=== PATIENT | female | born 1940 | race Caucasian/White ===

== ENCOUNTER 2021-08-01 12:26 | Outpatient (CLI) | payer MEDICARE, OTHER, SELFPAY ==
--- NOTE | 2021-08-01 16:24 | WPDSIXMINUTE ---
Six Minute Walk Procedure Procedure Performed Pulmonary Stress Test (6 min walk) Six Minute Walk This is a 6 minute walk test. The test was performed and interpreted in accordance with the 2014 ERS/ATS task force guidelines. Of note the patient perform this test using 6 L per minute nasal cannula oxygen. Findings: The patient's resting oxygen saturation on 6 L nasal cannula measured by pulse oximetry was 100% and her heart rate was 109 bpm. Patient ambulated for 183 meters and oxygen saturation remained 90 to 98%. Heart rate at the end of the study was 132 bpm. The patient did not qualify for supplemental oxygen at rest or with ambulation. There are no prior studies for comparison.
--- NOTE | 2021-08-01 16:26 | WPDPFTINT ---
PFT Procedure Performed PFT Procedure Performed Plethysmography (Lung Vol) Diffusing Cap (DLCO) Flow Vol Loop Spirometry w/o Bronchodil PFT Interpretation This is a pulmonary function test with spirometry, plethysmography and diffusing capacity. The test was performed and results interpreted in accordance with the 2019 and 2005 ATS/ERS Task Force guidelines respectively using the Global Lung Function Initiative-2012 reference equations. Patient demonstrated good effort and cooperation. Reproducibility criteria were met. The quality of the spirometry maneuver was Grade A. Findings: Spirometry: The contour of the inspiratory and expiratory flow tracing are normal. The FVC is 1.33 L, 55% predicted. The FEV1 is 0.99 L, 54% predicted. The FEV1: FVC ratio 74%. Plethysmography: The total lung capacity is 3.16 L, 67% predicted. Functional residual capacity is 1.92 L, 71% predicted. The residual volume is 1.83 L, 82% predicted. Diffusion capacity: The absolute diffusion capacity is 5.5, and 29% predicted. The diffusing capacity corrected for alveolar volume is 2.56, 60% predicted. Impression: There is a moderately severe restrictive ventilatory abnormality. The spirometry is normal without evidence of an obstructive abnormality. The absolute diffusing capacity is severely decreased and remains moderately decreased when corrected for alveolar volume. There are no prior studies for comparison
== END 2021-08-01 12:27 | disposition home or self-care (01) ==
PROVIDERS: PCP Family Medicine; Visit Provider Internal Medicine Pulmonary Disease
DX: J84.9 Interstitial pulmonary disease, unspecified (principal)
CPT/HCPCS: 94375; 94618; 94726; 94729

== ENCOUNTER 2024-03-03 11:14 | Outpatient (NON) | payer MEDICARE, OTHER, SELFPAY ==
[2024-03-03 12:43] LABS: Cholesterol 115 mg/dL (0-200); HDL Direct 48 mg/dL; Triglycerides 95 mg/dL (<150)
[2024-03-03 12:53] LABS: LDL Cholesterol Direct 63 mg/dL
== END 2024-03-03 11:15 | disposition home or self-care (01) ==
PROVIDERS: PCP Family Medicine; Visit Provider Family Medicine
DX: E78.5 Hyperlipidemia, unspecified (principal)
CPT/HCPCS: 80061

== ENCOUNTER 2024-03-15 12:17 | Observation (INO) | payer MEDICARE, OTHER, SELFPAY ==
[2024-03-15] VITALS (50 sets, daily range): BP systolic 76–116; BP diastolic 52–76; PULSE 91–137; RESP 13–38; TEMP 35.8–36.6; O2SAT 38–100; BMI 25.4
--- NOTE | ~2024-03-15 | CT_ITS ---
EXAMINATION: CTA chest PE abdomen pel DATE: 03/15/2024 14:50 INDICATION: pe TECHNIQUE: Computed tomography angiography (CTA) of the chest was performed with 100 mL Omnipaque-350 intravenous contrast timed to evaluate the pulmonary arteries, followed by portal venous phase imagi ng of the abdomen and pelvis. Coronal maximum intensity projection 3D-reconstructions were created by the technologist. The dose-length product (DLP) was 796.13 mGy-cm. Automated exposure control and it erative reconstruction technique were employed. COMPARISON: 10/26/2015. FINDINGS: CHEST: Lung parenchyma and airways: Moderate peripheral reticular opacities. Mild diffuse groundglass opacit ies. Consolidation in the superior segment of the left lower lobe. Patent airways. Pleura: Unremarkable. Thoracic inlet, axillae and chest wall: No thyroid or soft tissue mass. Thoracic aorta: No significant dilation. No dissection. Mediastinum: Patulous esophagus. Dilated central pulmonary arteries as can be seen with pulmonary art erial hypertension. Heart and pericardium: Marked cardiomegaly. Coronary artery calcifications: Mild. Thoracic bones: No acute osseous finding. Pulmonary arteries: Study quality: Limited evaluation of the subsegmental pulmonary arteries. No cent ral or segmental pulmonary emboli detected. ABDOMEN/PELVIS: Liver: Heterogeneous and low density parenchyma. Biliary/Gallbladder: Gallbladder is absent. No bile duct dilation. Pancreas: No mass or duct dilation. Spleen: Normal. Adrenals:No mass. Kidneys: No suspicious mass, obstructing stone, or hydronephrosis. Cortical thinning. Bilateral subce ntimeter hypodensities, too small to characterize but likely represent cysts. GI tract: Mild distal esophageal and gastric wall edema. No small or large bowel dilation. Normal chin endix. Diverticulosis without diverticulitis. Mesentery/Peritoneum: Mild ascitic fluid. Mild mesenteric edema. No mass or free air Retroperitoneum: No mass. Atherosclerotic abdominal aortic and/or arterial calcifications. Pelvis: Urinary bladder is decompressed by Mejia catheter. Absent uterus. Left ovary not confidently identified. Normal right ovary. Soft Tissues: Mild body wall edema. Abdominopelvic bones: No acute osseous finding. IMPRESSION: No CT evidence of acute central or segmental pulmonary embolus. Evaluation of the subsegmental pulmon steven arteries is limited. Segmental left lower lobe consolidation may represent infection, atelectasis, or aspiration. Moderate chronic interstitial changes, likely and NSIP or UIP. Mild esophagitis/gastritis. Low-density heterogeneous liver parenchyma may reflect cirrhosis or edema as can be seen with hepatit is, also likely with steatosis, correlate with liver labs. Mild mesenteric and body wall edema. Reviewed, dictated and finalized at location [facility]. IMPRESSION: No CT evidence of acute central or segmental pulmonary embolus. Evaluation of t he subsegmental pulmonary arteries is limited. Segmental left lower lobe consolidation may represent infection, atelectasis, o r aspiration. Moderate chronic interstitial changes, likely and NSIP or UIP. Mild esophagitis/gastritis. Low-density heterogeneous liver parenchyma may reflect cirrhosis or edema as ca n be seen with hepatitis, also likely with steatosis, correlate with liver labs . Mild mesenteric and body wall edema.
--- NOTE | ~2024-03-15 | XR_ITS ---
XR chest ET placement DATE: 03/15/2024 12:37 INDICATION: Tube placement TECHNIQUE: Portable AP chest on March 15, 2024 at 1230 hours COMPARISON: 10/13/2014 CT chest high resolution scan 10/26 72,[address] chest abdomen pelvis FINDINGS: ET tube is within approximately 1 cm of the ledy; ideal range is 205 cm. Proximal reposit ioning is recommended. NG tube in gastric fundus. No central lines. There is cardiomegaly. There is aortic calcification. Probable diffuse prominent chronic interstitial fibrotic changes of both lungs. Superimposed pneumoni a cannot be excluded given the absence of more recent examinations since 2014.. Clinical correlation is advised No pleural effusion. No pneumothorax. Diffuse osteopenia. IMPRESSION: Probable extensive bilateral chronic interstitial lung changes; superimposed infiltrate i s not excluded. Cardiomegaly Aortic atherosclerosis Osteopenia Reviewed, dictated and finalized at [facility]. Reviewed, dictated and finalized at location [facility]. IMPRESSION: Probable extensive bilateral chronic interstitial lung changes; sup erimposed infiltrate is not excluded. Cardiomegaly Aortic atherosclerosis Osteopenia
--- NOTE | 2024-03-15 12:23 | ECG_ITS ---
SEE SCANNED COPY FOR CONFIRMED REPORT MTDD
--- NOTE | 2024-03-15 12:26 | ED.SOB ---
HPI - SOB/Dyspnea General Chief Complaint: Shortness of Breath/Dyspnea Stated Complaint: Resp arrest History of Present Illness HPI Narrative: 82 years old white female lives alone, called 911 because of shortness of breath for unknown duration, EMT report that patient was on oxygen by nasal cannula, saturation less than 50%, confused, lethargic, heart rate was tachycardia, etomidate 20 mg IV, intubated, arrive to the ED unresponsive, intubated, no family member at the bedside, unknown code status. Unknown medical history. Later patient's daughter and son came to the emergency room and told me that patient have history of interstitial lung disease and normally on 8 L oxygen via nasal cannula at rest and can increase with activity. She have a home visiting nurse , and she is DNR. The daughter and son requested to extubate the patient and put her on Venti mask as usual. I did explain that extubation could lead to deteriorations and possible . the son and daughter understood. The family reports that patient blood pressure usually low. Related Data Allergies Allergy/AdvReac Type Severity Reaction Status Date / Time No Known Allergies Allergy Verified 03/15/24 12:46 Review of Systems Review of Systems: All systems reviewed & are unremarkable except as noted in HPI and below Exam Narrative: General appearance: Well-developed, well-nourished Skin: Normal color Head: Normocephalic, nontraumatic Eyes: Clear conjunctiva ENT: Oropharynx normal, ears normal, nose normal Neck: Supple, nontender Chest and respiratory: Airway patent, no respiratory distress, no accessory muscle use Heart: Regular rate/rhythm Abdomen: Soft, nontender, no organomegaly, quiet bowel sounds Vascular: Normal peripheral pulses, normal capillary refill. Neurologic: Unresponsive, status post a tummy date injection Course Vital Signs Vital signs: Vital Signs Temperature 36.4 C 03/15/24 12:21 Pulse Rate 120 H 03/15/24 12:21 Respiratory Rate 23 H 03/15/24 12:21 Blood Pressure 90/64 L 03/15/24 12:21 Pulse Oximetry 100 03/15/24 12:21 Oxygen Delivery Mechanical Ventilation 03/15/24 12:21 Temperature 35.9 C L 03/15/24 14:58 Pulse Rate 104 H 03/15/24 14:58 Respiratory Rate 18 03/15/24 14:58 Blood Pressure 114/67 03/15/24 14:58 Pulse Oximetry 100 03/15/24 15:02 Oxygen Delivery Non-Rebreather Mask 03/15/24 15:02 Oxygen Flow Rate 15 03/15/24 15:02 Fraction of Inspired Oxygen 100 03/15/24 15:02 MDM - SOB/Dyspnea MDM Narrative Medical decision making narrative: Patient came by ambulance from home with acute hypoxic respiratory failure, patient was intubated, patient's son and daughter reported that patient have DNR and would like to extubate her. Patient was extubated and placed non-rebreather Workup today showed interstitial pulmonary fibrosis, urinary tract infection, elevated lactic acid, patient was started on IV fluid per sepsis protocol, Levaquin, Zosyn and vancomycin. Current heart rate is 103, blood pressure 104/76, oxygen saturation 100% on non-rebreather. Patient still lethargic and unresponsive. Differential Diagnosis Differential diagnosis: Likely other ( Pneumonia, pulmonary edema, pulmonary embolism, pleural effusion, electrolyte imbalance, dehydration) Medical Records Attestation: I reviewed the patient's medical records. Lab Data Attestation: I reviewed the patient's lab results. 03/15/24 12:43 03/15/24 12:43 Labs: Lab Results 03/15/24 03/15/24 03/15/24 Range/Units 12:43 12:55 13:49 WBC 12.9 H (4.5-10.0) K/mm3 RBC 4.18 L (4.2-5.4) M/mm3 Hgb 13.8 (12
[2024-03-15 12:49] LABS: Basophils Absolute Auto 0.1 K/mm3 (0.0-0.1); Basophils Percent Auto 0.5 % (0.2-1.2); Eosinophils Absolute Auto 0.2 K/mm3 (0-0.3); Eosinophils Percent Auto 1.6 % (0-4.4); Hematocrit 46.8 % (37.0-47.0); Hemoglobin 13.8 g/dL (12.0-15.0); Immature Granulocyte Absolute 0.05 K/mm3 (0.00-0.031); Immature Granulocyte Percent A 0.4 % (0-0.5); Lymphocytes Absolute Auto 5.52 K/mm3 (0.9-3.2); Lymphocytes Percent Auto 42.7 % (18.3-44.2); Mean Corpuscular HGB Conc 29.5 g/dl (32-36); Mean Platelet Volume 10.6 fl (7.4-10.4); Monocytes Absolute Auto 0.8 K/mm3 (0.1-0.6); Monocytes Percent Auto 6.3 % (2.6-8.5); Neutrophils Absolute Auto 6.3 K/mm3 (1.3-6.7); Neutrophils Percent Auto 48.5 % (45.5-73.1); Platelet Count Result 217 k/mm3 (150-375); Red Blood Count 4.18 M/mm3 (4.2-5.4); Red Cell Distribution Width 14.6 % (11.5-14.5); White Blood Count 12.9 K/mm3 (4.5-10.0)
[2024-03-15] MEDS: SODIUM CHLORIDE 0.9% IV 1,000 ML 100 ML IV CONT (12:51)
[2024-03-15 12:58] LABS: Alveolar/Arterial O2 Gradient 260.1 mmHg; Base Excess ABG -4.9 mEq/l (+/-2.0); Fractional Inspired Oxygen 60 %; HCO3 ABG 23.7 mEq/l (22.0-26.0); Oxygen Content ABG 18.8 %vol (16.0-22.0); Oxygen Saturation ABG 96.5 % (95.0-100.0); Oxyhemoglobin 95.4 % THb (90.0-100.0); PO2 ABG 102.8 mmHg (80.0-100.0); PO2 FiO2 Ratio Arterial Blood 1.71 %; Total Hemoglobin 13.9 g/dL (12.0-18.0)
[2024-03-15 12:58] LABS: Lipase 133 U/L (23-300)
[2024-03-15 12:59] LABS: Device VENTILATOR; Modified Allen's Test Pass; Site Drawn RIGHT RADIAL; pH ABG 7.221 (7.350-7.450)
[2024-03-15 13:00] LABS: Arterial Blood Gas PEEP 5 cmH2O; Arterial Blood Gas Tidal Volume 400 ml; Arterial Blood Gas Vent Mode CMV; Arterial Blood Gas Ventilator rate 18 /MIN
[2024-03-15 13:00] LABS: INR 1.3; Prothrombin Time 16.5 Seconds (11.1-14.7)
[2024-03-15 13:01] LABS: Lactic Acid Reflex 10.7 mmol/L (0.7-2.0)
[2024-03-15] MEDS: MIDAZOLAM HCL (*CRX) 2 MG/2 ML VIAL IV PUSH (13:02)
[2024-03-15 13:03] LABS: Alanine Aminotransferase 33 U/L (6-35); Albumin Level 4.6 g/dL (3.5-5.1); Alkaline Phosphatase 69 U/L (38-126); Anion Gap 19 mmol/L (4-12); Aspartate Amino Transferase 88 U/L (14-36); Bilirubin,Total 1.3 mg/dL (0.2-1.3); Blood Urea Nitrogen 26 mg/dL (7-17); CRP < 0.5 mg/dL (<1.0); Carbon Dioxide 26 mmol/L (22-30); Chloride 94 mmol/L (98-107); Estimated CRCL calculation 46 ml/min; Estimated Glomerular Filt Rate > 60; Glucose 203 mg/dL (65-110); Sodium 139 mmol/L (137-145)
[2024-03-15 13:12] LABS: Troponin I 0.015 ng/mL (0.000-0.034)
[2024-03-15 13:13] LABS: Macrocytosis 1+ (NORMAL); Platelet Estimate Adequate (Adequate); Poikilocytosis 1+
[2024-03-15 13:14] LABS: Atypical Lymphocytes Present; Schistocytes None Seen
[2024-03-15] MEDS: SODIUM CHLORIDE 0.9% IV 2,100 ML/1,000 ML BAG 999 ML IV CONT ×3 (13:40→14:10)
--- NOTE | 2024-03-15 13:49 | PC.NURSE ---
Dr. Thornton and family at bedside. family reports pt is a DNR. family requesting for pt to be extubated and states they believe pt would not want to be intubated. called ED respiratory. pt will be extubated and placed on nonrebreather.
[2024-03-15] MEDS: PIPERACILLN/TAZ 3.375GM/NS50ML 3.375 GM/50 ML BAG IVPB ×2 (14:24→20:25)
[2024-03-15 14:26] LABS: Appearance Urine Turbid (Clear); Bacteria Urine 4+ /hpf; Bilirubin Urine 1+ (Negative); Blood Urine 2+ (Negative); Color Urine Dark Yellow (Yellow); Glucose Urine UA Trace mg/dL (Negative); Granular Casts Urine Present /lpf; Ketones Urine Negative (Negative); Leukocyte Esterase Ur Negative LEU/UL (Negative); Mucus Urine Present /lpf; Nitrate Urine Negative (Negative); Non Pathogenic Casts >20; Protein Urine 4+ mg/dL (Negative); RBC Urine 21-50 /hpf (0-2); Specific Grav Ur 1.022 (1.001-1.035); Squamous Epithelial Cell Urine Many /hpf (Few); WBC Urine 21-50 /hpf (0-3); pH Urine 5.5 (5.0-9.0)
[2024-03-15 14:28] LABS: Transitional Epi Cells Urine Few /hpf (None Seen)
[2024-03-15 14:29] LABS: Add Urine Microscopic? YES
[2024-03-15] MEDS: VANCOMYCIN 1,750 MG/NS 500 ML 1,750 MG/500 ML BAG 250 MG IVPB (14:57)
[2024-03-15 14:59] LABS: Influenza A QL RT-PCR Negative (Negative); Influenza B QL RT-PCR Negative (Negative); RSV RNA, RT-PCR Negative (Negative); SARS-CoV-2 RNA PCR Negative (Negative)
[2024-03-15 15:47] LABS: Reflex Lactic Acid Yes or No Add Lactic
[2024-03-15 16:16] LABS: MRSA (PCR) NOT DETECTED (NOT DETECTE)
[2024-03-15 16:31] LABS: Alveolar/Arterial O2 Gradient 546.6 mmHg; Base Excess ABG 3.9 mEq/l (+/-2.0); Fractional Inspired Oxygen 100 %; HCO3 ABG 34.2 mEq/l (22.0-26.0); Oxygen Content ABG 17.1 %vol (16.0-22.0); Oxygen Saturation ABG 93.1 % (95.0-100.0); Oxyhemoglobin 92.6 % THb (90.0-100.0); PO2 ABG 81.2 mmHg (80.0-100.0); PO2 FiO2 Ratio Arterial Blood 0.81 %; Total Hemoglobin 13.1 g/dL (12.0-18.0)
[2024-03-15 16:32] LABS: Modified Allen's Test Pass; PCO2 ABG 85.2 mmHg (35.0-45.0); Site Drawn RIGHT RADIAL; pH ABG 7.222 (7.350-7.450)
[2024-03-15 16:33] LABS: Device NON-REBREATHER MASK
[2024-03-15 17:55] LABS: Alveolar/Arterial O2 Gradient 283.2 mmHg; Base Excess ABG 0.8 mEq/l (+/-2.0); Carboxyhemoglobin 0.6 % THb (0-2.0); Fractional Inspired Oxygen 60 %; HCO3 ABG 30.1 mEq/l (22.0-26.0); Methemoglobin ABG 0.1 %THb (0-1.5); Oxygen Content ABG 16.2 %vol (16.0-22.0); PO2 ABG 64.2 mmHg (80.0-100.0); PO2 FiO2 Ratio Arterial Blood 1.07 %; Reduced Hemoglobin 11.5 %THb (0-5.0); Total Hemoglobin 13.1 g/dL (12.0-18.0)
[2024-03-15 17:56] LABS: Device NON-INVASIVE VENT; Modified Allen's Test Pass; Oxygen Saturation ABG 87.7 % (95.0-100.0); Oxyhemoglobin 87.8 % THb (90.0-100.0); PCO2 ABG 73.1 mmHg (35.0-45.0); Site Drawn LEFT RADIAL; pH ABG 7.233 (7.350-7.450)
[2024-03-15 17:57] LABS: Non-Invasive Expiratory Pressure 7 CMH2O; Non-Invasive Inspiratory Pressure 14 CMH2O; Non-Invasive Vent Rate 22 /MIN
--- NOTE | 2024-03-15 18:09 | PC.NURSE ---
Transported to pt by instrument and control technician and RT. Mother and granddaughter at bedside.
[2024-03-15] MEDS: levoFLOXacin 750 MG/D5W 150 ML 750 MG/150 ML BAG 100 MG IVPB (18:17)
--- NOTE | 2024-03-15 18:21 | PM.IMHP ---
H&P: HPI History of Present Illness Date/Time: 03/15/24 19:00 Chief Complaint: Shortness of breath. Narrative: This is a pleasant 83-year-old female with chronic hypoxic respiratory failure secondary to chronic interstitial lung disease and diastolic congestive heart failure who presented to the emergency department via EMS from home for evaluation of shortness of breath. She is on 8 L nasal cannula at baseline but her oxygen requirements go up to 15 L with exertion, such as taking a shower. She lives home alone however has a upholstery restorer that is with her a majority of the day and her children stay with her on the weekends. The patient seemed to be in her usual state of health when her caregiver was there today. Not long after her caregiver left for the day something happened, the patient cannot recall exactly what, but she ended up calling 911 as she was in respiratory distress and reportedly stated that she was having problems with her concentrator. On EMS arrival she was in respiratory distress with an SpO2 of 50% on 6 L and she was intubated in the field. She was extubated after family members arrived to the ED per the patient's wishes. She was somnolent but arousable following extubation and was placed on BiPAP with marked improvement. She has been afebrile since arrival. Labs were significant for WBC count of 12.9, hemoglobin 13.8, MCV 112, platelet 217, lactic acid 10.7, glucose 203, BUN 26, creatinine 0.80, troponin 0.015. CT of the chest, abdomen, pelvis showed no evidence of acute central or segmental pulmonary embolus (limited evaluation of the subsegmental arteries), segmental left lower lobe consolidation, changes consistent with chronic interstitial lung disease, and mild gastritis/esophagitis. She was given empiric antibiotics for possible pneumonia and is being admitted to the IMU in this setting for further treatment. At the time my evaluation she is feeling a lot better and is alert and oriented. She denies fever, chills, sweats, sinus congestion, sore throat, productive cough, chest pain, pleuritic pain, lower extremity edema, calf pain, nausea, vomiting, diarrhea, and dysuria. Review of Systems Review of Systems: 12 systems were reviewed and are negative except for as per HPI. [facility] Past Medical History Medical History (Updated 03/15/24 @ 23:22 by Eliza Kohler PA-C) Chronic hypoxic respiratory failure Chronic interstitial lung disease Congestive heart failure Surgical History Surgical History (Updated 03/15/24 @ 23:16 by Eliza Kohler PA-C) History of hysterectomy Social History Social History (Updated 03/15/24 @ 23:16 by Eliza Kohler PA-C) Social History: Surrogate medical decision maker: Pema Aguayo, daughter. Code status: Do not resuscitate. Smoking status: Never smoker Alcohol intake: never Substance use: never Do You Feel Safe in your Home?: Yes Lack of Transportation: No Lack of Food: Never True Current Housing: I Have Housing Concerned About Future Housing: No Difficulty Paying Gas/Electric Bills: No Difficulty Paying for Meds: No Currently Unemployed: No Education: High School Diploma/GED Difficulty w/ Childcare or Family Care: No Spiritual care concerns: No Meds Home Medications and Allergies Home Medications Medication Instructions Recorded Confirmed Type acetaminophen 325 mg tablet 650 mg PO Q6H PRN Pain, Mild 03/15/24 03/15/24 History aspirin 81 mg tablet,delayed 81 mg PO DAILY 03/15/24 03/15/24 History release cholecalciferol (vitamin D3) 10 10 mcg PO DAILY 03/15/24 03/15/24 History mcg (400 unit) tablet cinnamon bark 500 mg capsule 500 mg PO DAILY 03/15/24 03/15/24 History docusate sodium 100 mg capsule 100 mg PO DAILY PRN Constipation 03/15/24 03/15/24 History furosemide 40 mg tablet 40 mg PO DAILY 03/15/24 03/15/24 History ibandronate 150 mg tablet 150 mg PO MONTHLY 03/15/24 03/15/24 History ketoconazole 2 % topical cream 1 chin
[2024-03-15] MEDS: SODIUM CHLORIDE 0.9% IV 1,000 ML 125 ML IV CONT (18:23)
--- NOTE | 2024-03-15 18:43 | ADMGEN ---
This patient, Tiffany Rodrigez, was admitted to IMU Room 232-01. Patient/family oriented to hospital policies and general routines including ID bracelet, bed and alarms, visiting hours, pain management, procedures, bathroom and other care routines, personal items, smoking policy, room service/diet, and visiting hours. Information on how to activate the Rapid Response Team has been discussed. Patient/Family are encouraged to report perceived risks to care and to ask questions if they do not understand what they are told or what they should do.
[2024-03-15 21:13] LABS: Lactic Acid 2.1 mmol/L (0.7-2.0)
[2024-03-15 23:04] LABS: Fractional Inspired Oxygen 70 %; HCO3 VBG 31.8 mEq/l (24.0-30.0); PCO2 VBG 55.9 mmHg (42.0-48.0); PO2 VBG 44.9 mmHg (35.0-45.0); pH VBG 7.373 (7.300-7.400)
[2024-03-15 23:07] LABS: Device BIPAP
[2024-03-15 23:08] LABS: Expiratory Pressure 7 cmH2O; Inspiratory Pressure 14 cmH2O
[2024-03-15] MEDS: SIMVASTATIN 10 MG TABLET PO (23:17)
[2024-03-15] MEDS: MELATONIN 5 MG TABLET PO (23:17)
[2024-03-15] MEDS: MIDODRINE HCL 2.5 MG TABLET 5 MG PO (23:17)
[2024-03-16] VITALS: BP 92/59; PULSE 107; PULSE 110; RESP 16; TEMP 36.5; O2SAT 93; O2SAT 96
[2024-03-16] MEDS: methylPREDNISolone SOD SUCC 125 MG VIAL 80 MG IV PUSH (00:33)
[2024-03-16] MEDS: CEFEPIME 2 GM/NS 50 ML 2 GM/50 ML BAG IVPB (00:33)
[2024-03-16] MEDS: AZITHROMYCIN 500 MG/NS 250 ML 500 MG/250 ML BAG 250 MG IVPB (00:33)
[2024-03-16 01:05] VITALS: PULSE 94; RESP 46; O2SAT 98
--- NOTE | 2024-03-16 01:40 | PHAR ---
HOME MED: TREPROSTINIL (TYVASO) 1.74 MG/2.9 ML (0.6 MG/ML). PACKAGE CONTAINS FOUR 2.9 ML AMPULES. INHALE 14 PUFFS FOUR TIMES DAILY DURING WAKING HOURS. ONE NEW AMPULE SHOULD BE USED EACH DAY. EACH AMPULE SHOULD REMAIN IN THE DEVICE FOR NO MORE THAN 1 DAY. ANY REMAINING TYVASO AND THE MEDICINE CUP SHOULD BE DISCARDED AT THE END OF EACH DAY. VERIFIED IN PHARMACY 03/16/24 @ 0144.
[2024-03-16 02:00] VITALS: PULSE 114
[2024-03-16 02:58] VITALS: PULSE 107; RESP 38; O2SAT 94
[2024-03-16] MEDS: IPRATROPIUM 0.5 MG/ALBUTEROL SULFATE 2.5 MG AMPUL.NEB 3 ML INHALATION (02:59)
--- NOTE | 2024-03-16 03:55 | PC.NURSE ---
Patient's bipap alarming. This RN entered patient's room to find patient unresponsive and heart rate in the 60s. Attempted to wake patient without success. Hopeashish at beside to check on patient. Weak pulse palpated. DNR code status confirmed. Patient's daughter, Pema, called and notified of change in condition, stated they would be on their way to see patient.
--- NOTE | 2024-03-16 04:37 | PC.NURSE ---
Family arrived and notified of patient expiration by CHINTAN Arteaga.
--- NOTE | 2024-03-16 04:56 | PC.NURSE ---
Roddy from [facility] notified that family is aware of at this time. Family will call back with a home.
--- NOTE | 2024-03-17 02:25 | PC.NURSE ---
Spoke with [facility];they have been unable to reach family for donation. It is OK to release the body to the home at this time. Family still needs to call with Home information.
--- NOTE | 2024-03-17 09:40 | PC.NURSE ---
Family choosing [facility] [phone] and [facility] in [place] will be transporting body to [facility].
--- NOTE | 2024-03-23 13:18 | PM.DDS ---
Discharge Summary Date and Time Date of : 03/16/24 Time of : 04:01 Provider Pronounced By: Phyllis Rivera Probable Cause of Probable Cause of : Interstitial lung disease. Summary Hospital Course: The patient called 911 in respiratory distress and was found with an SpO2 of 50% on 6 L on EMS arrival. She was intubated in the field and brought to the emergency department. Family members arrived shortly thereafter and wished the patient to be extubated per her wishes (DNR/DNI status). The patient was somnolent but arousable following extubation was placed on BiPAP with marked improvement in her ABG and mentation. She was started on steroids and antibiotics. She seemed to be restless with the BiPAP and requested that it be removed several times in order to have water with significant decline in her oxygenation within seconds. Several hours after midnight the patient's BiPAP was alarming and when the nurse entered the room she was unresponsive and bradycardic with heart rates in the low 60s. Attempts to arouse the patient were unsuccessful. A call was placed the patient's daughter Pema who reiterated the DNR/DNI status. The patient at 04:01. Additional Data Confirmation of as documented by pronouncing clinician: Pupillary Reflex, Palpable Pulses, Response to Stimuli, Heart Tones and Breath Sounds Name of Provider Notified: Dr. Cottrell- in room Time Provider Notified: 04:01 Provider Requests Autopsy: No Family Requests Autopsy: No Well Surveying Engineer Notified: Yes Date [facility] Notified of : 03/16/24 Time [facility] Notified of : 04:18
[2024-03-24 18:23] LABS: Mycoplasma IgM Antibody Titer 447 U/mL
== END 2024-03-16 04:01 | disposition expired ==
LOC: ANHED 15:40 → ANHIMU 17:42
PROVIDERS: Physician Assistant; Admitting Provider Internal Medicine; Emergency Provider Emergency Medicine; PCP Family Medicine; Visit Provider Internal Medicine
DX: J96.21 Acute and chronic respiratory failure with hypoxia (principal); J96.22 Acute and chronic respiratory failure with hypercapnia; J84.9 Interstitial pulmonary disease, unspecified; E87.20 Acidosis, unspecified; I50.30 Unspecified diastolic (congestive) heart failure; R82.90 Unspecified abnormal findings in urine; J84.10 Pulmonary fibrosis, unspecified; R40.4 Transient alteration of awareness; M85.80 Other specified disorders of bone density and structure, unspecified site; I70.0 Atherosclerosis of aorta; R74.02 Elevation of levels of lactic acid dehydrogenase [LDH]; R00.0 Tachycardia, unspecified; Z20.822 Contact with and (suspected) exposure to COVID-19; Z66 Do not resuscitate; Z99.81 Dependence on supplemental oxygen; Z79.82 Long term (current) use of aspirin; Z79.51 Long term (current) use of inhaled steroids; Z79.899 Other long term (current) drug therapy
CPT/HCPCS: 36415; 36600; 71275; 74177; 80053; 81001; 82375; 82803; 82805; 83050; 83605; 83690; 84484; 85025; 85610; 85730; 86140; 86738; 87040; 87077; 87086; 87088; 87186; 87637; 87641; 93005; 94002; 94003; 94640; 96361; 96365; 96366; 96367; 96375; 99285; A9270; G0378; J0456; J0692; J1956; J2250; J2543; J2919; J3370; J7030; Q9967